=== PATIENT | female | born 1955 | race Caucasian/White ===

== ENCOUNTER → 2017-09-23 08:14 | Outpatient (CLI) | payer BC, SELFPAY ==
--- NOTE | 2017-09-23 08:18 | XR_ITS ---
XR DEXA axial skeleton HISTORY: ITS.REASON: POST MENOPAUSAL ORDERING PHYSICIAN: Jair Sewell MD PATIENT AGE: 61 years COMPARISON: None FINDINGS: The patient has a left hip replacement. The BMD measured at the Right femoral neck is 0.956 g/cm squared with a T score of -0.6 . This is considered normal according to the World Health Organization criteria. Fracture risk is low. The lumbar spine density has a T score of 3.4 with multilevel osteophytes. The total radius density is T score of 0.7 IMPRESSION: Normal bone density. Recommend follow-up exam September 2019
== END ==
PROVIDERS: PCP Family Medicine; Visit Provider Family Medicine
DX: Z13.820 Encounter for screening for osteoporosis (principal); Z78.0 Asymptomatic menopausal state
CPT/HCPCS: 77080

== ENCOUNTER → 2020-08-10 13:06 | Outpatient (CLI) | payer MEDICARE, BC, SELFPAY ==
[2020-08-10 14:31] LABS: Coronavirus 19 IgG Antibody Positive (Negative); Coronavirus 19 IgM Antibody Negative (Negative)
== END ==
PROVIDERS: Visit Provider Internal Medicine Gastroenterology
DX: Z01.812 Encounter for preprocedural laboratory examination (principal); Z20.822 Contact with and (suspected) exposure to COVID-19; Z86.16 Personal history of COVID-19; Z12.11 Encounter for screening for malignant neoplasm of colon; K92.1 Melena
CPT/HCPCS: 36415; 86328

== ENCOUNTER 2020-08-13 09:21 | Day surgery (SDC) | payer MEDICARE, BC, SELFPAY ==
[2020-08-08 10:08] VITALS: BMI 33.3
[2020-08-13 09:44] VITALS: BP 167/90; PULSE 107; RESP 18; TEMP 37.1; O2SAT 97
--- NOTE | 2020-08-13 10:17 | P.PN_ITS ---
[facility] Anesthesia Checklist - Patient Identification Patient Identification: Arm Band - Structural Data Admitted From: Home Planned Operative Procedure/s: colonoscopy Consent for Planned Operative Procedure(s) Verified: Yes Verified Documents: Surgical Consent, History and Physical - NPO Status Verified Time NPO: 00:00 - Additional verifications Anesthesia Reactions: No - Airway Assessment C-Spine Mobility Assessed: Yes (mp1) TMJ Mobility Assessed: Yes Dentition: Good Dentition - Neurological Assessment Level of Consciousness: Awake, Alert - Anesthesia Plan Anesthesia Risk discussed: Yes Anesthesia Plan: Verified ASA Class: II Anesthesia Type: MAC [facility] History I have reviewed the patient's past medical history: Yes Medical History: Reports:: Hypertension Denies:: Cancer, Diabetes Mellitus Type 1, Diabetes Mellitus Type 2, Internal Pacemaker, MRSA, Seizures *Have you ever received a pneumonia vaccine?: No *Have you received a flu vaccine this season?: No Anesthesia experience/problems:: nac Laterality Cases: Left: Total Hip Replacement Other Surgeries: Yes: Colonoscopy. No: Pacemaker Amputation: No - *Social History Alcohol Intake: never Substance Use Type: denies use *Occupational Status:: retired Housing: house Household Members: spouse *Travel in the last 8 weeks: None Family Hx:: No significant family history
[2020-08-13 11:18] VITALS: O2SAT 97
--- NOTE | 2020-08-13 11:41 | HMH.PROC ---
[facility] Procedure Note Procedure Note:: Colonoscopy Procedure Report: Colonoscopy with cold snare polypectomy Endoscopist: Garett Starr II, MD Referring physician: Jair Sewell MD Date of Procedure: August 13, 2020 Equipment: Olympus 180 variable stiffness pediatric colonoscope Sedation: MAC sedation Indication: Mrs. Lopez is a 64-year-old female who is here for diagnostic colonoscopy secondary to a positive Cologuard test. The patient reports no rectal bleeding or hematochezia. She reports no abdominal pain, weight loss, change in her bowel habits or family history of colon cancer. She does have some mild chronic constipation which is unchanged. Her last colonoscopy was 15 years ago. Procedure: Prior to the procedure, a history and physical exam was performed, and patient's medications and allergies were reviewed. The risks, benefits and alternatives of the sedation and procedure were discussed with the patient. All questions were answered and informed consent was obtained. The patient was brought to the procedure room. Patient identification and proposed procedure were verified by the physician and the nurse. The patient was placed in a left lateral decubitus position and the scope was passed under direct vision. Throughout the procedure, the patient's blood pressure, pulse, and oxygen saturations were monitored continuously. The colonoscopy was accomplished without difficulty. The patient tolerated the procedure well. Findings: On digital rectal examination there was normal rectal tone. There were no external hemorrhoids. The colonoscope was introduced through the anal canal to the rectum and advanced to the cecum. The ileocecal valve and appendiceal orifice were identified. The scope was advanced a short distance into the ileum which appeared grossly normal. The scope was then withdrawn into the colon. The cecum, ascending and transverse colon and mucosa were grossly normal. There was a diminutive 4 to 5 mm polyp in the descending colon removed via cold snare polypectomy. There were scattered diverticuli throughout the descending and sigmoid colon (LEFT colon). The rectum itself was normal. Upon retroflexion within the rectum there were grade 1-2 internal hemorrhoids. The preparation was excellent throughout with Echo Preparation Score of 9. The cecal time was 11 minutes. Impression: 1. Diminutive descending colon polyp 2. Extensive left-sided diverticulosis 3. Grade 1-2 internal hemorrhoids Plan: The patient had a false positive Cologuard. I will follow up the polyp pathology and recommend repeat colonoscopy again in 7-10 years based upon the polyp histology. I would encourage a fiber bowel regimen on a long-term daily maintenance basis.
[2020-08-13 11:42] VITALS: BP 99/63; PULSE 81; RESP 12; TEMP 36.2; O2SAT 95
[2020-08-13 11:52] VITALS: BP 102/62; PULSE 69; RESP 16; O2SAT 99
[2020-08-13 12:02] VITALS: BP 113/76; PULSE 74; RESP 16; O2SAT 98
[2020-08-13 12:12] VITALS: BP 111/65; PULSE 70; RESP 16; TEMP 36.2; O2SAT 98
== END 2020-08-13 12:17 | disposition home or self-care (01) ==
LOC: OUTP 09:31
PROVIDERS: PCP Family Medicine; Visit Provider Internal Medicine Gastroenterology
PROC: 0DJD8ZZ Inspection of Lower Intestinal Tract, Via Natural or Artificial Opening Endoscopic (ICD-10-PCS; CPT 45378; principal; 2020-08-13 10:30)
DX: K63.5 Polyp of colon (principal); K57.30 Diverticulosis of large intestine without perforation or abscess without bleeding; K64.0 First degree hemorrhoids; I10 Essential (primary) hypertension; Z96.649 Presence of unspecified artificial hip joint; Z88.0 Allergy status to penicillin; Z79.899 Other long term (current) drug therapy
CPT/HCPCS: 45385; 88305

== ENCOUNTER → 2021-10-25 11:36 | Outpatient (CLI) | payer MEDICARE, BC, SELFPAY ==
--- NOTE | 2021-10-25 11:55 | ECG_ITS ---
APPROVED REPORT Exam: Resting ECG HR:81 bpm ECG Measurements Heart Rate 81 AXES VT 173 P 64 QRSd 104 QRS -60 QT 365 T 73 QTc 402 Conclusion SINUS RHYTHM LEFT ANTERIOR FASCICULAR BLOCK [QRS AXIS <= -45, QR IN I, RS IN II] POSSIBLE ANTERIOR MYOCARDIAL INFARCTION , OF INDETERMINATE AGE [30 ms Q WAVE IN V3/V4, OR R < 0.2 mV IN V4] ABNORMAL ECG UNCONFIRMED REPORT Electronically signed by : Sandro Pisano MD 10/25/2021 16:19:11
[2021-10-25 12:46] LABS: Basophils # 0.2 K/mm3 (0-0.2); Basophils % 3.1 % (0.1-2.0); Eosinophils # 0.1 K/mm3 (0.0-0.4); Eosinophils % 1.2 % (0.1-12.0); Hematocrit 43.3 % (37.0-47.0); Hemoglobin 14.2 g/dL (12.2-16.2); Mean Corpuscular HGB Conc 32.8 g/dL (31.8-35.4); Mean Corpuscular Hemoglobin 30.2 pg (27.0-31.2); Mean Platelet Volume 8.5 fl (7.4-10.4); Monocytes # 0.4 K/mm3 (0.1-1.0); Monocytes % 5.5 % (1.7-9.3); Neutrophils # 3.9 K/mm3 (1.8-7.8); Neutrophils % 60.2 % (37.0-80.0); Platelet Count 289 K/mm3 (142-424); Red Blood Count 4.71 M/mm3 (4.20-5.40); Red Cell Distribution Width 13.9 % (11.5-17.5); White Blood Count 6.6 K/mm3 (4.8-10.8)
[2021-10-25 13:08] LABS: Activated Partial Thrombo Time 29.1 seconds (22.8-30.6); INR 0.96 (0.9-1.1); Prothrombin Time 10.9 seconds (10.1-12.5)
[2021-10-25 13:13] LABS: Alanine Aminotransferase 23 U/L (12-78); Albumin Level 4.4 g/dl (3.5-5.0); Albumin/Globulin Ratio 1.6 (1.1-1.8); Alkaline Phosphatase 103 U/L (38-126); Anion Gap 11.9 mEq/L (5-15); Aspartate Amino Transferase 24 U/L (14-36); Bilirubin,Total 0.8 mg/dl (0.2-1.3); Blood Urea Nitrogen 17 mg/dl (7-17); Calcium 10.3 mg/dl (8.4-10.2); Carbon Dioxide 27 mmol/L (22.0-30.0); Chloride 105 mmol/L (98-107); Estimated Glomerular Filt Rate 123 ml/min (>60); GFR (African American) 149 ML/MIN (>60); Globulin 2.7 g/dL (1.3-3.2); Glucose 95 mg/dl (74-100); Potassium 3.9 mmoL/L (3.5-5.1); Sodium 140 mmol/L (136-145); Total Protein,Serum 7.1 g/dl (6.3-8.2)
[2021-10-25 13:29] LABS: Hemoglobin A1C 5.3 % (4.0-6.0)
[2021-10-26 08:15] LABS: Prealbumin 25 mg/dL (10-36)
== END ==
PROVIDERS: PCP Family Medicine; Visit Provider Family Medicine
DX: Z01.818 Encounter for other preprocedural examination (principal); Z51.81 Encounter for therapeutic drug level monitoring; Z79.01 Long term (current) use of anticoagulants
CPT/HCPCS: 36415; 80053; 83036; 84134; 85025; 85610; 85730; 93005

== ENCOUNTER → 2022-11-21 09:06 | Outpatient (CLI) | payer MEDICARE, BC, SELFPAY ==
--- NOTE | 2022-11-21 09:12 | XR_ITS ---
FINAL REPORT CLINICAL HISTORY: . post menopausal screening COMPARISON: None FINDINGS: Using L1-4, the bone mineral density of the spine is 1.313 g/cm2, corresponding to T-score of 2.4. This is in the normal range. Using the left forearm, the bone mineral density of the left forearm is 0.551 g/cm2, corresponding to a T-score of -0.5. This is in the normal range. Patient has had bilateral hip replacements. NOTE: T-score: Standard deviation compared with peak bone mass of young adult mean. *Following the recommendations of the International Society of Bone densitometry, classification of hip BMD is based on the lower of two T-scores; total hip or femoral neck. IMPRESSION: Normal bone mineral density of the lumbar spine and left forearm. Reviewed, Interpreted and Dictated by Pete Mukherjee MD Transcribed by Lidya Mosqueda Authenticated and [facility]
== END ==
PROVIDERS: PCP Family Medicine; Visit Provider Family Medicine
DX: Z78.0 Asymptomatic menopausal state (principal); Z13.820 Encounter for screening for osteoporosis
CPT/HCPCS: 77080

== ENCOUNTER 2023-01-31 14:19 | Emergency (ER) | payer MEDICARE, BC, SELFPAY ==
--- NOTE | 2023-01-31 14:34 | PC.NURSE ---
rounded on pt, stable, waiting on open bed in the ER, HS rounded
[2023-01-31 14:43] VITALS: BP 176/89; PULSE 110; RESP 14; O2SAT 96
[2023-01-31 14:49] LABS: Microscopic, Urine URINE MICROSCOPIC (MICROSCOPIC)
[2023-01-31 14:53] LABS: Appearance,Urine CLEAR (Clear); Bilirubin,Urine Negative (Negative); Blood, Urine Negative (Negative); Color,Urine ORANGE (Yellow); Glucose,Urine (UA) Negative (Negative); Ketones,Urine Negative (Negative); Leukocyte Esterase,Urine Negative (Negative); Nitrate,Urine POSITIVE (Negative); Protein,Urine Negative (Negative); Specific Gravity, Urine <= 1.005 (1.005-1.030)
[2023-01-31 15:12] LABS: Bacteria,Urine 1+ /lpf; Squamous Epithelial Cell,Urine Occasional #/hpf (0-5)
[2023-01-31 15:39] VITALS: BP 162/90; PULSE 101; O2SAT 98
[2023-01-31 15:56] VITALS: BP 176/89; PULSE 101; RESP 20; TEMP 36.8; O2SAT 96; BMI 33.3
--- NOTE | 2023-01-31 15:56 | HMH.EDGENADL ---
Discharge Plan Disposition Patient Disposition: Home, Self-Care Chief Complaint: Nausea/Vomiting/Diarrhea Prescriptions Prescriptions: No Action amlodipine 5 MG tablet 5 mg PO DAILY irbesartan 300 MG tablet 300 mg PO DAILY Referrals Follow up/Referrals: Jair Sewell MD [Primary Care Provider] - See instructions Clinical Impressions Clinical Impression: Diarrhea Discharge ED Provider: Arnaldo White General Adult HPI General Chief complaint: Nausea/Vomiting/Diarrhea Stated complaint: Poss dehydration, diarrhea, RT leg pain Time Seen by Provider: 01/31/23 15:34 History of Present Illness HPI narrative: Patient is a 67-year-old female with past medical history of right hip replacement who presents emergency department for evaluation of diarrhea. History is obtained by patient at bedside. Over the last 2 weeks patient has had approximately 5-6 episodes of nonbloody stool per day. No associated abdominal pain. She has had increased urinary frequency for which she has taken Azo. She has previous history of low potassium and has had crampy achy pain in her lateral thigh and calf that is intermittent. She has a history of bilateral hip replacements. Afebrile throughout the course. Denies other acute complaints at this time. Related Data Home Medications Medication Instructions Recorded Confirmed amlodipine 5 mg tablet 5 mg PO DAILY blood pressure 08/08/20 08/13/20 irbesartan 300 mg tablet 300 mg PO DAILY heart 08/08/20 08/13/20 Allergies Allergy/AdvReac Type Severity Reaction Status Date / Time Penicillins [PENICILLINS] Allergy Unknown S-BLISTERING Verified 08/13/20 09:43 [facility] Disclaimer: The information contained in this section may have been updated after the patient was seen, as this information can be updated by other users. Social History Smoking Status: Never smoker alcohol intake: never substance use type: denies use current occupational status: retired Travel in the last 8 weeks: None household members: spouse housing: house current occupational exposures/hazards: No caffeine: Yes ROS Obtained: Yes Systems reviewed as appropriate & no additional complaints except as documented Physical Exam General General appearance: alert and in no apparent distress Head Head exam: atraumatic and normocephalic Eye Eye exam: Present PERRL and EOMI ENT ENT exam: Present mucous membranes moist Neck Neck exam: Present normal inspection Chest Chest inspection: Present normal inspection and symmetric chest wall rise Respiratory Respiratory exam: Present normal lung sounds bilaterally; Absent respiratory distress Cardiovascular Cardiovascular exam: Present normal rhythm, tachycardia and other (Capillary refill 3 seconds) Abdominal Exam Abdominal exam: Present soft; Absent distention, tenderness, guarding, rebound or rigidity Extremities Exam Extremities exam: Present normal inspection and other (Full active range of motion at the hip and knee on the right. No asymmetric swelling, no overlying skin changes, no tenderness to palpation of the right lower extremity.) Neurological Exam Neurological exam: Present alert and oriented X3 Psychiatric Psychiatric exam: Present normal affect Skin Skin exam: Present warm and dry Medical Decision Making Nando Inquiry Pt receiving controlled substance: No Vital Signs: 01/31/23 14:43 01/31/23 15:39 01/31/23 15:56 Temperature 98.3 F Temperature Source Oral Pulse Rate 110 H 101 H Pulse Rate [Left Radial] 101 H Respiratory Rate 14 20 Blood Pressure 176/89 H 162/90 H Blood Pressure [Right Arm] 176/89 H Blood Pressure Mean Blood Pressure Mean [Right Arm] 118 02 Sat by Pulse Oximetry 96 98 96 Oxygen Delivery Method Room Air Room Air Room Air 01/31/23 17:53 Temperature Temperature Source Pulse Rate 86 Pulse Rate [Left Radial] Respiratory Rate Blood Pressure 170/89 H Blood
--- NOTE | 2023-01-31 15:59 | XR_ITS ---
PROCEDURE INFORMATION: Exam: XR Right Femur Exam date and time: 01/31/2023 3:59 PM Age: 67 years old Clinical indication: Pain; Right; Prior surgery; Surgery date: 6+ months; Surgery type: Hip replacement 1 year ago; Additional info: Pain, previous hip replacement TECHNIQUE: Imaging protocol: Radiologic exam of the right femur. Views: 2 views. COMPARISON: CR XR HIP RT 2-3V W/PELVIS 01/31/2023 3:56 PM FINDINGS: Bones/joints: Right total hip replacement without evidence of complication. There is no evidence of acute fracture.There is no evidence of malalignment or dislocation. Soft tissues: Unremarkable. IMPRESSION: There is no evidence of acute fracture.There is no evidence of malalignment or dislocation.
--- NOTE | 2023-01-31 15:59 | XR_ITS ---
PROCEDURE INFORMATION: Exam: XR Right Hip Exam date and time: 01/31/2023 3:56 PM Age: 67 years old Clinical indication: Hip pain; Right hip; Prior surgery; Surgery date: 6+ months; Surgery type: Hip replaced 1 year ago; Additional info: Pain, previous replacement TECHNIQUE: Imaging protocol: Radiologic exam of the right hip. Views: 2 or 3 views hip with pelvis when performed. COMPARISON: No relevant prior studies available. FINDINGS: Bones/joints: Bilateral total hip replacements without evidence of complication. There is no evidence of acute fracture.There is no evidence of malalignment or dislocation. Soft tissues: Unremarkable. IMPRESSION: 1. Bilateral total hip replacements without evidence of complication. 2. There is no evidence of acute fracture.There is no evidence of malalignment or dislocation.
[2023-01-31 17:05] LABS: Basophils # 0.1 K/mm3 (0-0.2); Basophils % 0.6 % (0.1-2.0); Chloride 107 mmol/L (98-107); Eosinophils # 0.1 K/mm3 (0.0-0.4); Eosinophils % 0.8 % (0.1-12.0); Hematocrit 47.2 % (37.0-47.0); Hemoglobin 15.1 g/dL (12.2-16.2); Lymphocytes # 1.6 K/mm3 (0.7-4.5); Lymphocytes % 13.8 % (10-50); Mean Corpuscular Hemoglobin 28.8 pg (27.0-31.2); Mean Corpuscular Volume 89.9 fl (81-99); Mean Platelet Volume 8.5 fl (7.4-10.4); Monocytes # 0.4 K/mm3 (0.1-1.0); Monocytes % 3.3 % (1.7-9.3); Neutrophils # 9.4 K/mm3 (1.8-7.8); Neutrophils % 81.5 % (37.0-80.0); Platelet Count 288 K/mm3 (142-424); Potassium 3.7 mmoL/L (3.5-5.1); Red Blood Count 5.25 M/mm3 (4.20-5.40); Red Cell Distribution Width 13.9 % (11.5-17.5); Sodium 145 mmol/L (136-145); White Blood Count 11.6 K/mm3 (4.8-10.8)
[2023-01-31 17:07] LABS: Alanine Aminotransferase 28 U/L (12-78); Aspartate Amino Transferase 31 U/L (14-36); Blood Urea Nitrogen 18 mg/dl (7-17); Creatinine Clearance Estimated 76 mL/min (50-200); Estimated Glomerular Filt Rate 99 ml/min (>60); GFR (African American) 120 ML/MIN (>60)
[2023-01-31 17:08] LABS: Albumin Level 4.7 g/dl (3.5-5.0); Albumin/Globulin Ratio 1.3 (1.1-1.8); Alkaline Phosphatase 124 U/L (38-126); Anion Gap 16.7 mEq/L (5-15); Bilirubin,Total 0.7 mg/dl (0.2-1.3); Calcium 10.1 mg/dl (8.4-10.2); Carbon Dioxide 25 mmol/L (22.0-30.0); Globulin 3.7 g/dL (1.3-3.2); Glucose 103 mg/dl (74-100); Lipase 83 U/L (23-300); Total Protein,Serum 8.4 g/dl (6.3-8.2)
[2023-01-31 17:53] VITALS: BP 170/89; PULSE 86; O2SAT 97
--- NOTE | 2023-01-31 17:56 | PC.NURSE ---
rounded on pt, pt unhooked for the bathroom, ambulated with no issues at this time
--- NOTE | 2023-01-31 18:41 | PC.NURSE ---
pt received water
[2023-01-31 19:25] VITALS: BP 170/89; PULSE 89; RESP 16; TEMP 36.7
== END 2023-01-31 19:26 | disposition home or self-care (01) ==
PROVIDERS: Emergency Medicine; Emergency Provider Emergency Medicine; PCP Family Medicine
DX: R19.7 Diarrhea, unspecified (principal); M79.604 Pain in right leg
CPT/HCPCS: 73502; 73552; 80053; 81001; 83690; 85025; 96360; 99285

== ENCOUNTER → 2023-02-02 12:08 | Outpatient (CLI) | payer MEDICARE, BC, SELFPAY ==
[2023-02-02 12:15] LABS: Adenovirus F 40/41, stool Not Detected (NotDetected); Astrovirus Not Detected (NotDetected); Campylobacter Not Detected (NotDetected); Clostridium Difficile A/B, PCR Not Detected (NotDetected); Cryptosporidium Not Detected (NotDetected); Cyclospora Cayetanesis Not Detected (NotDetected); Entamoeba histolytica Not Detected (NotDetected); Enteroaggregative E coli Not Detected (NotDetected); Enteropathogenic E coli Not Detected (NotDetected); Enterotoxigenic E coli Not Detected (NotDetected); Norovirus Not Detected (NotDetected); Plesimonas Shigalloides, PCR Not Detected (NotDetected); Rotavirus A Not Detected (NotDetected); Salmonella, PCR Not Detected (NotDetected); Sapovirus Not Detected (NotDetected); Shiga-like toxin E coli Not Detected (NotDetected); Shigella Enterovasive E coli Not Detected (NotDetected); Vibrio Cholerae Not Detected (NotDetected); Vibrio, PCR Not Detected (NotDetected); Yersinia Entercolitica, PCR Not Detected (NotDetected)
[2023-02-02 20:51] LABS: Giardia lamblia Detected (NotDetected)
== END ==
PROVIDERS: PCP Family Medicine; Visit Provider Family Medicine
DX: R19.7 Diarrhea, unspecified (principal); A07.1 Giardiasis [lambliasis]
CPT/HCPCS: 87506